=== PATIENT | female | born 1980 | race Caucasian/White ===

== ENCOUNTER 2020-05-21 10:10 | Inpatient (IN) | payer OTHER ==
[2020-05-21 11:10] VITALS: BMI 25.0
[2020-05-21] MEDS ORDERED: CITRIC ACID/SODIUM CITRATE 30 ML UNIT-DOSE CUP PO ONE (11:21)
[2020-05-21] MEDS ORDERED: ELECTROLYTE-148 SOLN 1,000 ML IV SCH (11:30)
[2020-05-21] MEDS ORDERED: ONDANSETRON 4 MG/2 ML VIAL IVPUSH PRN ×2 (11:54→14:04)
[2020-05-21] MEDS ORDERED: PHENYLEPHRINE HCL 10 MG/1 ML SINGLE DOSE VIAL ONE (11:59)
[2020-05-21] MEDS ORDERED: morphine SULFATE/PF 0.5 MG/ML (2cc Syringe - QUVA) ONE (11:59)
[2020-05-21] MEDS ORDERED: OXYTOCIN 10 UNITS/ML VIAL ONE ×4 (13:35)
[2020-05-21] MEDS ORDERED: ceFAZolin SODIUM 1 GM VIAL ONE ×2 (13:35)
[2020-05-21] MEDS ORDERED: MORPHINE SULFATE 2 MG/ML VIAL IVPUSH PRN (14:10)
[2020-05-21] MEDS ORDERED: OXYTOCIN 20 UNITS in 0.9% NS 20 UNIT/1,000 ML INFUS.BAG IV SCH (14:15)
[2020-05-21 15:25] LABS: CORD BASE EXCESS -3.8 mmol/L (0-2); CORD PCO2 53.3 mmHg (30-78); CORD pH 7.272 (7.14-7.44)
[2020-05-21 15:28] LABS: CORD BASE EXCESS -3.7 mmol/L (0-2); CORD HCO3 24.2 mmHg (20-29); CORD PCO2 55.3 mmHg (30-78); CORD pH 7.259 (7.14-7.44)
[2020-05-21] MEDS: IBUPROFEN 800 MG/8 ML IJ IVPB SCH ×2 (16:31→22:59)
[2020-05-21] MEDS: CEFAZOLIN 1 GM/D5W 1 GM/50 ML BAG IVPB SCH (21:57)
[2020-05-21] MEDS ORDERED: SENNOSIDES/DOCUSATE COMBO (SENNA PLUS) TABLET (UD) PO PRN (22:00)
[2020-05-22] MEDS: CEFAZOLIN 1 GM/D5W 1 GM/50 ML BAG IVPB SCH (01:18)
[2020-05-22] MEDS: IBUPROFEN 800 MG/8 ML IJ IVPB SCH (06:30)
[2020-05-22 08:32] LABS: BASO % 0.3 % (0-2.0); EOS % 0.5 % (0-4.5); HEMATOCRIT 35.8 % (32.4-45.2); HEMOGLOBIN 11.7 GM/dL (10.7-15.3); LYMPH % 12.8 % (8-40); MCH 29.3 pg (25.7-33.7); MCHC 32.6 g/dl (32.0-36.0); MEAN CELL VOLUME 89.9 fl (80-96); MEAN PLT VOLUME 11.1 fl (7.5-11.1); MONO % 7.1 % (3.8-10.2); NEUT % 79.3 % (42.8-82.8); PLATELET COUNT 173 K/MM3 (134-434); RBC 3.98 M/mm3 (3.60-5.2); RDW 14.3 % (11.6-15.6); WHITE BLOOD COUNT 10.8 K/mm3 (4.0-10.0)
[2020-05-22 08:54] LABS: POTASSIUM 4.1 mmol/L (3.5-5.1)
[2020-05-22 09:36] LABS: BLOOD UREA NITROGEN 3.3 mg/dL (7-18); CALCIUM 8.3 mg/dL (8.5-10.1)
[2020-05-22] MEDS ORDERED: ALBUTEROL SO4 HFA INHALER IH PRN (09:37)
[2020-05-22 09:39] LABS: CREATININE 0.5 mg/dL (0.55-1.3)
[2020-05-22] MEDS: SIMETHICONE 80 MG TAB.CHEW (FP) PO PRN ×2 (09:57→21:37)
[2020-05-22] MEDS: oxyCODONE HCL 5 MG TABLET PO PRN ×3 (09:57→21:38)
[2020-05-22] MEDS ORDERED: BISACODYL 10 MG SUPP.RECT RC PRN (14:04)
[2020-05-22] MEDS: IBUPROFEN 600 MG TABLET (FP) PO PRN (21:38)
[2020-05-23] MEDS: IBUPROFEN 600 MG TABLET (FP) PO PRN ×2 (10:14→14:01)
[2020-05-23] MEDS: oxyCODONE HCL 5 MG TABLET PO PRN (10:15)
[2020-05-23] MEDS: SIMETHICONE 80 MG TAB.CHEW (FP) PO PRN ×2 (10:17→14:01)
[2020-05-23 12:38] VITALS: BP 114/71; PULSE 72; TEMP 98.2
== END 2020-05-23 14:40 | disposition home or self-care (01) | DRG 540 ==
LOC: JLDR 10:10 → J3W 15:47
PROVIDERS: ADMIT Family Medicine; ATTEND Family Medicine
PROC: 10D00Z1 Extraction of Products of Conception, Low, Open Approach (ICD-10-PCS; principal; 2020-05-21)
PROC: 0DNW0ZZ Release Peritoneum, Open Approach (ICD-10-PCS; 2020-05-21)
DX: O34.219 Maternal care for unspecified type scar from previous cesarean delivery (principal); K66.0 Peritoneal adhesions (postprocedural) (postinfection); Z3A.39 39 weeks gestation of pregnancy; Z37.0 Single live birth
CPT/HCPCS: 36415; 36600; 80048; 82803; 85025; 88307-TC